=== PATIENT | male | born 1985 | race Asian ===

== ENCOUNTER 2019-09-02 12:38 | Emergency (ER) | payer BC, MEDICAID ==
[~2019-09-02] VITALS: Ht 185.4 cm; Wt 93.4 kg
[2019-09-02 13:00] VITALS: Ht 185.4 cm; Wt 93.4 kg
[2019-09-02 15:29] VITALS: BP 117/61
== END 2019-09-02 15:29 | disposition home or self-care (01) ==
LOC: ED 12:38
DX: S93.401A Sprain of unspecified ligament of right ankle, initial encounter (principal); S30.0XXA Contusion of lower back and pelvis, initial encounter; W18.30XA Fall on same level, unspecified, initial encounter; Y93.89 Activity, other specified; Y92.89 Other specified places as the place of occurrence of the external cause; Y99.8 Other external cause status